=== PATIENT | male | born 1965 | race African-American/Black ===

== ENCOUNTER 2021-06-04 00:20 | Emergency (ER) | payer OTHER ==
[~2021-06-04] VITALS: Ht 182.9 cm; Wt 102.1 kg
[2021-06-04 01:19] LABS: ABSOLUTE NEUTROPHILS 2.9 thou/uL (1.4-8.2); BASOPHILS 0.5 % (0.0-2.0); EOSINOPHILS 0.7 % (0.0-3.0); HEMATOCRIT 35.2 % (42.0-52.0); HEMOGLOBIN 11.9 gm/dL (14.0-18.0); LYMPHOCYTES 22.1 % (24.0-44.0); MCV 106.1 fL (80.0-100.0); MONOCYTES 10.5 % (1.0-8.0); PLATELET COUNT 392 thou/uL (150-400); POLYS 66.2 % (36.0-66.0); RBC 3.31 mil/uL (4.50-6.00); RDW 16.7 % (10.5-14.5); WBC 4.4 thou/uL (4.0-11.0)
[2021-06-04 01:32] LABS: ALBUMIN 3.3 g/dL (3.4-5.0); CALCIUM 8.4 mg/dL (8.5-10.1); TOTAL PROTEIN 6.4 g/dL (6.4-8.2)
[2021-06-04 01:37] LABS: POTASSIUM 2.8 mmol/L (3.5-5.1)
[2021-06-04 02:35] LABS: URINE BILIRUBIN NEGATIVE (Negative); URINE BLOOD NEGATIVE (Negative); URINE CLARITY CLEAR; URINE COLOR YELLOW; URINE GLUCOSE-RANDOM* NEGATIVE (Negative); URINE KETONES TRACE (Negative); URINE LEUKOCYTES-REFLEX TRACE (Negative); URINE NITRITE-REFLEX NEGATIVE (Negative); URINE PROTEIN (DIPSTICK) TRACE (Negative); URINE SPECIFIC GRAVITY >= 1.030 (1.005-1.035)
[2021-06-04] MEDS ORDERED: KEPPRA 500 MG500 MG PO (02:47)
[2021-06-04 04:10] VITALS: BP 124/85
--- NOTE | 2021-06-04 08:15 | EKG ---
[place] [address] [facility] [place] [address] ELECTROCARDIOGRAM REPORT Name: NICHELLE OJEDA Room #: DEP Dedrick#: [id number] Admission: 06/04/21 Attend Phys: Discharge: 06/04/21 Date of : 67 Report #: [id number] [facility] ED Test Date: 2021-06-04 Test Time: 01:07:11 Pat Name: NICHELLE OJEDA Department: Room: Gender: Study Assistant: : 1965 Requested By: Chidi Buitrago Order Number: [id number] MD: Tito Tsai Measurements Intervals [place] Rate: 76 P: 29 ME: 169 QRS: -2 QRSD: 89 T: -7 QT: 401 QTc: 451 Interpretive Statements Sinus rhythm Abnormal R-wave progression, late transition Borderline T abnormalities, inferior leads No previous ECG available for comparison Electronically Signed On 06-04-2021 8:15:29 [employer]IPE TE[employer] by Tito Tsai [email or web address] <ELECTRONICALLY SIGNED> By: Tito Tsai MD, [facility] 06/04/21 0815 [id number] Tito Tsai MD, FACC /EPI
== END 2021-06-04 04:49 | disposition home or self-care (01) ==
LOC: ER 00:20
PROVIDERS: Emergency Medicine
DX: R56.9 Unspecified convulsions (principal); E87.6 Hypokalemia